=== PATIENT | male | born 1995 | race Two or more races ===

== ENCOUNTER 2017-01-17 11:17 | Emergency (ER) | payer MEDICAID, OTHER ==
[~2017-01-17] VITALS: Ht 180.3 cm; Wt 90.7 kg
[~2017-01-17 11:17] MED LIST: NKM
[2017-01-17 11:20] VITALS: BP 111/73
[2017-01-17 12:36] VITALS: BP 114/76
--- NOTE | 2017-01-20 07:20 | Emergency Room Report ---
History of Present Illness General Chief Complaint: Alcohol Intoxication Source: Patient, EMS Present Illness HPI Patient is a 21-year-old male brought in by EMS after a reported altered mental status. The patient had been found the in a car. The patient stated he had been smoking marijuana. He denies any recent alcohol use. Patient was noted to have vomited. Patient denies any current complaints he states he feels fine. Allergies: Coded Allergies: No Known Allergies (Unverified , 01/17/17) Patient History Past Medical History: see triage record Reviewed Nursing Documentation: PMH: Agreed, PSxH: Agreed Nursing Documentation-PMH Past Medical History: No Stated History Review of Systems All Other Systems: negative except mentioned in HPI Physical Exam Vital Signs Date Time Temp Pulse Resp B/P (MAP) Pulse Ox O2 Delivery O2 Flow Rate FiO2 01/17/17 11:10 98.1 90 16 109/71 98 Room Air General Appearance: well appearing, no apparent distress, alert, GCS 15, non- toxic Head: normocephalic, atraumatic ENT: hearing grossly normal, normal voice Neck: full range of motion, supple Respiratory: no respiratory distress, speaking full sentences Cardiovascular #1: normal inspection, regular rate, rhythm Gastrointestinal: normal inspection, soft Musculoskeletal: normal inspection, back normal, digits/nails normal, gait/ station normal, no calf tenderness Neurologic: normal inspection, alert, oriented x3, responsive, 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 Differential diagnosis included but was not limited to ischemic stroke, subarachnoid hemorrhage, hypoglycemia, spinal cord injury, neurodegenerative disorder, urinary tract infection, hypoxemia. Patient's benign exam and does not appear to require any further imaging or laboratory testing at this time. The patient noted be awake alert with a good plan for self care. The patient declined further testing. .At the time of discharge patient is awake alert oriented and able to ambulate without assistance.The patient is advised to follow up with primary care doctor in next few days. Patient is advised to return if any worsening condition or if any changes in status that are concerning. Last Vital Signs Date Time Temp Pulse Resp B/P (MAP) Pulse Ox O2 Delivery O2 Flow Rate FiO2 01/17/17 12:36 98.1 87 15 114/76 99 Room Air Status: improved Disposition: HOME, SELF-CARE Condition: Improved Referrals: CONRAD CANO (PCP) Patient Instructions: Cannabis Use Disorder Brent Vargas Jan 20, 2017 07:20
== END 2017-01-17 12:38 | disposition home or self-care (01) ==
LOC: EDBD 11:17 → EMR 11:25
DX: F19.10 Other psychoactive substance abuse, uncomplicated (principal); R11.10 Vomiting, unspecified
CPT/HCPCS: 99282